=== PATIENT | female | born 2000 | race Two or more races ===

== ENCOUNTER 2021-02-02 05:11 | Observation (INO) | payer MEDICAID ==
[~2021-02-02] VITALS: Ht 172.7 cm; Wt 73.5 kg
[2021-02-02] MEDS ORDERED: PREN-96 PO (05:44)
[2021-02-02] MEDS ORDERED: TERBUTALINE SULFATE 1 MG/ML 1ML VIAL SC ONE ×2 (06:00→09:00)
[2021-02-02] MEDS ORDERED: LACTATED RINGER'S 1,000 ML IV ONE (06:00)
[2021-02-02 06:42] LABS: Urine Bacteria FEW /hpf (None Seen); Urine Blood Negative /uL (Negative); Urine Specific Gravity 1.011 (1.001-1.035); Urine WBC 84 /hpf (0 - 5)
[2021-02-02 06:54] LABS: Alcohol, Urine < 3.0 mg/dL (0-10); Amphetamine Screen, Urine NEGATIVE (NEGATIVE); Barbiturate Scree,Urine NEGATIVE (NEGATIVE); Benzodiazephine Screen, Urine NEGATIVE (NEGATIVE); Cannabinoid Screen, Urine NEGATIVE (NEGATIVE); Cocaine Screen, Urine NEGATIVE (NEGATIVE); Opiate Scree,Urine NEGATIVE (NEGATIVE); Phencyclidine Screen, Urine NEGATIVE (NEGATIVE)
== END 2021-02-02 09:35 | disposition home or self-care (01) ==
LOC: LDRP 05:11
PROVIDERS: ADMIT Specialist; ATTEND Specialist
DX: O60.03 Preterm labor without delivery, third trimester (principal); Z3A.28 28 weeks gestation of pregnancy
CPT/HCPCS: 59025; 76815; 80307; 81001; 81002; 96360; 96361; 96372; G0378; J3105

== ENCOUNTER 2022-01-27 17:46 | Emergency (ER) | payer MEDICAID, OTHER ==
[~2022-01-27] VITALS: Ht 172.7 cm; Wt 68.9 kg
[~2022-01-27 17:46] MED LIST: PREN-96 PO
[2022-01-27 17:48] VITALS: BP 110/73
== END 2022-01-27 21:21 | disposition home or self-care (01) ==
LOC: ER 17:46
DX: O26.892 Other specified pregnancy related conditions, second trimester (principal); J06.9 Acute upper respiratory infection, unspecified; Z3A.20 20 weeks gestation of pregnancy; Z20.822 Contact with and (suspected) exposure to COVID-19
CPT/HCPCS: 36415

== ENCOUNTER 2022-12-30 10:03 | Emergency (ER) | payer MEDICAID ==
[~2022-12-30] VITALS: Ht 172.7 cm; Wt 63.6 kg
[2022-12-30 10:10] VITALS: BP 117/78
[2022-12-30 10:48] LABS: Basophils # (auto) 0 10 ^3/uL (0-0.2); Basophils % (auto) 0.6 % (0.0-2.0); Eosinophils # (auto) 0.6 10 ^3/uL (0-0.8); Eosinophils % (auto) 10.2 % (0.0-7.0); Hematocrit 42.2 % (36.0-46.0); Hemoglobin 14.6 g/dL (12.2-16.2); Lymphocytes # (auto) 1.2 10 ^3/uL (0.4-5.4); Lymphocytes % (auto) 21.4 % (10.0-50.0); Mean Corpuscular Hgb Conc. 34.6 g/dL (32.0-36.0); Mean Corpuscular Volume 89.6 fL (80.0-100.0); Monocytes # (auto) 0.4 10 ^3/uL (0-1.3); Monocytes % (auto) 6.9 % (0.0-12.0); Neutrophils # (auto) 3.4 10 ^3/uL (1.6-8.6); Neutrophils % (auto) 60.9 % (37.0-80.0); Nucleated Red Blood Cells % 0.1 %; Red Blood Cells 4.71 10^6/uL (4.0-5.20); Red Cell Distribution Width 13.3 % (11.8-14.3); White Blood Cell 5.5 10^3/uL (4.4-10.8)
[2022-12-30 10:56] LABS: Urine Bacteria NONE SEEN /hpf (None Seen); Urine Blood 2+ /uL (Negative); Urine WBC 6 /hpf (0 - 5)
[2022-12-30 11:08] LABS: Albumin 3.8 g/dL (3.4-5.0); Calcium 8.8 mg/dL (8.5-10.1); Potassium 3.9 mmol/L (3.5-5.1)
[2022-12-30 11:12] LABS: BUN/Creatinine Ratio 13.7 (10.0-20.0); Bilirubin, Total 0.8 mg/dL (0.2-1.0); Total Protein 6.8 g/dL (6.4-8.2)
== END 2022-12-30 14:49 | disposition home or self-care (01) ==
LOC: ER 10:03
DX: O20.8 Other hemorrhage in early pregnancy (principal); R10.2 Pelvic and perineal pain; Z3A.12 12 weeks gestation of pregnancy
CPT/HCPCS: 36415; 76801; 76817; 80053; 81001; 81025; 84702; 85025; 86901